=== PATIENT | female | born 1985 | race American Indian/Alaskan Native ===

== ENCOUNTER 2017-05-30 05:50 | Day surgery (SDC) | payer MEDICAID ==
--- NOTE | 2017-05-30 07:49 | Anesthesia Day of Surgery ---
Anesthesia Day of Surgery - Day of Surgery Patient Examined: Yes Patient H&P Reviewed: Yes Patient is NPO: Yes
--- NOTE | 2017-05-30 07:49 | Anesthesia Consultation ---
Anesthesia Consult and Med Hx Date of service: 05/30/17 - Airway Anesthetic Teeth Evaluation: Good ROM Head & Neck: Adequate Mental/Hyoid Distance: Adequate Mallampati Class: Class II Intubation Access Assessment: Probably Good - Pulmonary Exam CTA: Yes - Cardiac Exam Cardiac Exam: RRR - Pre-Operative Health Status ASA Pre-Surgery Classification: ASA3 Proposed Anesthetic Plan: General
[2017-05-30] MEDS ORDERED: DIPRIVAN 10 MG/ML IV ONE ×2 (07:55)
[2017-05-30] MEDS ORDERED: NACL 0.9% 1000 ML 1,000 ML IV SCH (08:00)
--- NOTE | 2017-05-30 08:17 | Operative Report ---
Operative Report Operative Report: EGD Post bypass DATE: 05/30/17 OPERATIVE REPORT - EGD PREOP DIAGNOSIS: gastric dyspepsia POSTOP DIAGNOSIS: same SURGERY: Upper endoscopy. SURGEON: Dr. Ever Amor CORRECTION LIEUTENANT: Cordelia Otoole DO TYPE OF ANESTHESIA: MAC. ESTIMATED BLOOD LOSS: None. COMPLICATIONS: None. SPECIMENS REMOVED: None. FINDINGS: 1. normal esophagus 2. gastric pouch - 60ml 3. gastrojejunal anastomosis is 30mm INDICATIONS:INDICATION FOR PROCEDURE: Patient is a 31-year-old F s/p gastric bypass in 2009. The patient is here today for pevaluation for revisional surgery due to dyspepsia. The patient is here for a planned EGD for gastric dyspepsia. PROCEDURE DETAILS: After consent was reviewed, patient was taken back to the operating room where patient was placed in the left lateral decubitus position and a bite block was placed in the mouth. After a time-out was called, MAC anesthesia was initiated. I then passed the endoscope into the patients oropharynx, into the esophagus, visualized the entire esophagus, which was all within normal limits. I then visualized the gastric pouch which was normal and about 60ml in size. The gastrojejunal anastomosis was normal at about 30mm. The proximal portion of the urbano limb was normal. I then desufflated the gastric pouch and removed the endoscope. Patient tolerated procedure well and was transferred to recovery room in good and stable condition
--- NOTE | 2017-05-30 08:18 | Discharge Summary ---
Providers - Providers Attending physician: RASTA NUNN Primary care physician: CHASITY DOHERTY Hospitalization Condition: Good Procedures: egd Hospital course: 31 y.o. F with hx of gastric bypass in 2009 presents to endoscopy for EGD to eval her current bypass and GJ due to dyspepsia symptoms. She tolerated the procedure well. She was discharged the same day. Disposition: TO HOME OR SELFCARE Core Measure Documentation - Palliative Care Palliative Care/ Comfort Measures: Not Applicable - Core Measures Any of the following diagnoses?: none Exam - Physical Exam Narrative exam: no change from prior - Constitutional Vitals: Temp Pulse Resp BP Pulse Ox 98.1 F 73 11 L 132/75 98 05/30/17 07:35 05/30/17 07:35 05/30/17 07:35 05/30/17 07:35 05/30/17 07:35 Plan Activity: no restrictions Additional Instructions: follow up in Dr. Gama office Follow up with: CHASITY DOHERTY MD [Primary Care Provider] - 7 Days
--- NOTE | 2017-05-30 08:42 | Post Anesthesia Evaluation ---
- Post Anesthesia Evaluation Patient Participated: Yes Airway Patent: Yes Stable Respiratory Function: Yes Nausea/Vomiting: No Temp > 96.8F: Yes Pain Manageable: Yes Adequeate Hydration: Yes Anesthesia Complications: No
[2017-05-30 09:07] VITALS: BP 92/48
== END 2017-05-30 05:51 | disposition home or self-care (01) ==
LOC: GIO 05:50
PROVIDERS: ATTEND Specialist
DX: R10.13 Epigastric pain (principal); M79.7 Fibromyalgia; E78.00 Pure hypercholesterolemia, unspecified; E11.9 Type 2 diabetes mellitus without complications; E66.01 Morbid (severe) obesity due to excess calories; Z68.41 Body mass index [BMI] 40.0-44.9, adult; Z98.0 Intestinal bypass and anastomosis status; Z98.84 Bariatric surgery status; Z88.2 Allergy status to sulfonamides
CPT/HCPCS: 43235; 81025; J2704; J7030

== ENCOUNTER → 2017-08-15 | Outpatient (CLI) | payer MEDICAID | LOC: SLR 11:00 | PROVIDERS: ATTEND Otolaryngology | DX: G47.30 Sleep apnea, unspecified (principal) | CPT/HCPCS: G0399 ==